=== PATIENT | male | born 1975 | race Caucasian/White ===

== ENCOUNTER 2019-10-14 12:12 | Emergency (ER) | payer MEDICAID ==
[2019-10-14] MEDS ORDERED: SODIUM CHLORIDE 0.9% 1,000 ML IV ONE (12:39)
--- NOTE | 2019-10-14 12:42 | ED Physician Documentation ---
PD HPI DYSPNEA - Stated complaint Stated Complaint: CHEST TIGHTNESS/DIZZY - Chief complaint Chief Complaint: Resp - History obtained from History obtained from: Patient (Previously healthy 44-year-old gentleman has been sick for 2 weeks. His symptoms include chest tightness and dyspnea both of which are worse with exertion. Also some mild orthopnea and the chest tightness is worse when he is flat. There is no associated cough or fever. He does have a lot of malaise and fatigue and lightheaded type dizziness. His whole family was sick with a viral syndrome but they have all recovered.) Review of Systems Ten Systems: 10 systems reviewed and negative Constitutional: reports: Fatigue. denies: Fever, Chills Cardiac: reports: Chest pain / pressure. denies: Palpitations, Pedal edema Respiratory: reports: Dyspnea. denies: Cough PD PAST MEDICAL HISTORY - Past Medical History Past Medical History: No - Past Surgical History Past Surgical History: No - Allergies Allergies/Adverse Reactions: Allergies Allergy/AdvReac Type Severity Reaction Status Date / Time No Known Drug Allergies Allergy Verified 10/14/19 12:20 - Social History Does the pt smoke?: No Does the pt drink ETOH?: Yes - Family History Family history: reports: Non contributory PD ED PE NORMAL - Vitals Vital signs reviewed: Yes - General General: Alert and oriented X 3, No acute distress - HEENT HEENT: PERRL, EOMI - Neck Neck: Supple, no meningeal sign, No bony TTP - Cardiac Cardiac: RRR, No murmur - Respiratory Respiratory: No respiratory distress, Clear bilaterally - Abdomen Abdomen: Normal bowel sounds, Soft, Non tender - Back Back: No CVA TTP, No spinal TTP - Derm Derm: Normal color, Warm and dry - Extremities Extremities: No edema, No calf tenderness / cord - Neuro Neuro: Alert and oriented X 3, Normal speech Results - Vitals Vitals: Vital Signs - 24 hr 10/14/19 10/14/19 10/14/19 12:20 13:04 14:01 Temperature 36.5 C Heart Rate 92 92 76 Respiratory 16 16 18 Rate Blood Pressure 170/100 H 133/84 H O2 Saturation 98 100 99 10/14/19 14:09 Temperature Heart Rate 100 Respiratory 18 Rate Blood Pressure 165/100 H O2 Saturation 100 Oxygen O2 Source Room air - EKG (time done) 1220 Rate: Rate (enter#) (93) Rhythm: NSR [place]: Normal Intervals: Normal DE QRS: Normal Ischemia: Normal ST segments Computer interpretation: Agree with computer - Labs Labs: Laboratory Tests 10/14/19 10/14/19 10/14/19 13:05 13:05 13:05 WBC 5.9 RBC 5.06 Hgb 15.3 Hct 43.9 MCV 86.8 MCH 30.2 MCHC 34.9 RDW 12.0 Plt Count 190 MPV 9.7 Neut # (Auto) 4.3 Lymph # (Auto) 1.2 L [place] # (Auto) 0.4 Eos # (Auto) 0.0 Baso # (Auto) 0.0 Absolute Nucleated RBC 0.00 Nucleated RBC % 0.0 D-Dimer VBG pH VBG pCO2 VBG pO2 VBG HCO3 VBG Total CO2 VBG O2 Saturation VBG Base Excess Sodium 139 Potassium 3.5 Chloride 102 Carbon Dioxide 25 Anion Gap 12.0 BUN 17 Creatinine 0.7 Estimated GFR (MDRD) 122 Glucose 105 H Calcium 9.8 Total Bilirubin 1.7 H AST 38 ALT 65 H Alkaline Phosphatase 68 Troponin I High Sens 2.9 B-Natriuretic Peptide Total Protein 8.2 Albumin 4.9 Globulin 3.3 Albumin/Globulin Ratio 1.5 Lipase 24 10/14/19 10/14/19 10/14/19 13:05 13:05 13:05 WBC RBC Hgb Hct MCV MCH MCHC RDW Plt Count MPV Neut # (Auto) Lymph # (Auto) [place] # (Auto) Eos # (Auto) Baso # (Auto) Absolute Nucleated RBC Nucleated RBC % D-Dimer < 200.0 L VBG pH 7.354 VBG pCO2 43.8 VBG pO2 56.4 H VBG HCO3 23.9 VBG Total CO2 25.2 VBG O2 Saturation 89.9 H VBG Base Excess -1.8 Sodium Potassium Chloride Carbon Dioxide Anion Gap BUN Creatinine Estimated GFR (MDRD) Glucose Calcium Total Bilirubin AST ALT Alkaline Phosphatase Troponin I High Sens B-Natriuretic Peptide 9 Total Protein Albumin Globulin Albumin/Globulin Ratio Lipase - Rads (name of study) 1v chest Radiology: EMP read contemporaneously (maybe bronchitis, no PNA) PD MEDICAL DECISION MAKING - ED course ED course: 44-year-old gentleman with fatigue and malaise potentially a viral syndrome. Note lymphopenia and coronavirus testing is sent. Otherwise basically negative work-up. Departure - Departure Disposition: 01 Home, Self Care Clinical Impression: Viral syndrome Chest pain Qualifiers: Chest pain type: unspecified Qualified Code(s): R07.9 - Chest pain, unspecified Condition: Good Record reviewed to determine appropriate education?: Yes Instructions: ED Chest Pain NonCardiac, ED Viral Syndrome Comments: Self quarantine in your home until no symptoms + another 72 hours. Return if worse. Discharge Date/Time: 10/14/19 14:08
--- NOTE | 2019-10-14 13:28 | XRAY Report ---
Reason: chest pain Procedure Date: 10/14/2019 Accession Number: [id number] / [id number] Procedure: XR - Chest 1 View X-Ray CPT Code: 45336 Final Report FULL RESULT: EXAM: CHEST RADIOGRAPHY EXAM DATE: 10/14/2019 01:21 PM. CLINICAL HISTORY: Chest pain. Cough. Labor breathing x2+ days. COMPARISON: None. TECHNIQUE: 1 view. FINDINGS: Lungs/Pleura: Mild bilateral bronchial wall thickening. No consolidation or vascular congestion. No pleural effusion or pneumothorax. Mediastinum: Cardiomediastinal silhouette appears unremarkable. Bones: No acute osseous findings identified. IMPRESSION: 1. Possible mild airways disease/bronchitis. No consolidation. RADIA
[2019-10-14 13:31] LABS: BASOPHILS % (AUTO) 0.3 %; EOSINOPHILS % (AUTO) 0.3 %; HGB - HEMOGLOBIN 15.3 g/dL (14.0-18.0); LYMPHOCYTES # (AUTO) 1.2 10^3/uL (1.5-3.5); LYMPHOCYTES % (AUTO) 19.8 %; MEAN CORPUSCULAR HEMOGLOBIN 30.2 pg (27.0-31.0); MEAN CORPUSCULAR HGB CONC 34.9 g/dL (32.0-36.0); MEAN CORPUSCULAR VOLUME 86.8 fL (80.0-94.0); MEAN PLATELET VOLUME 9.7 fL (7.4-11.4); MONOCYTES # (AUTO) 0.4 10^3/uL (0.0-1.0); MONOCYTES % (AUTO) 5.9 %; NEUTROPHILS # (AUTO) 4.3 10^3/uL (1.5-6.6); NEUTROPHILS % (AUTO) 73.4 %; PLT - PLATELET COUNT 190 10^3/uL (130-450); RED BLOOD COUNT 5.06 10^6/uL (4.70-6.10); WHITE BLOOD COUNT 5.9 x10^3/uL (4.8-10.8)
[2019-10-14 13:45] LABS: ALBUMIN 4.9 g/dL (3.2-5.5); ALBUMIN/GLOBULIN RATIO 1.5 (1.0-2.2); BILIRUBIN,TOTAL 1.7 mg/dL (0.2-1.0); CALCIUM 9.8 mg/dL (8.5-10.3); CREATININE 0.7 mg/dL (0.6-1.2); TOTAL PROTEIN 8.2 g/dL (6.7-8.2)
[2019-10-14 13:49] LABS: VBG PCO2 43.8 mmHg (41-51); VBG PH 7.354 (7.31-7.41)
[2019-10-14 13:50] LABS: VBG BASE EXCESS -1.8 mmol/L (-2 - +2); VBG PO2 56.4 mmHg (25-47); VBG TOTAL CO2 25.2 mmol/L (24-29)
[2019-10-14 14:10] VITALS: BP 165/100
== END 2019-10-14 14:08 | disposition home or self-care (01) ==
LOC: ED 12:12
DX: B34.9 Viral infection, unspecified (principal); R07.9 Chest pain, unspecified
CPT/HCPCS: 36415; 71045; 80053; 81599; 82803; 83690; 83880; 84484; 85025; 85379; 93005; 99284

== ENCOUNTER 2022-10-04 18:53 | Emergency (ER) | payer MEDICAID ==
[2022-10-04 19:23] LABS: BASOPHILS % (AUTO) 0.4 %; EOSINOPHILS # (AUTO) 0.1 10^3/uL (0.0-0.7); EOSINOPHILS % (AUTO) 0.9 %; HCT - HEMATOCRIT 43.1 % (42.0-52.0); HGB - HEMOGLOBIN 14.3 g/dL (14.0-18.0); LYMPHOCYTES # (AUTO) 2.4 10^3/uL (1.5-3.5); LYMPHOCYTES % (AUTO) 26.2 %; MEAN CORPUSCULAR HEMOGLOBIN 29.3 pg (27.0-31.0); MEAN CORPUSCULAR HGB CONC 33.2 g/dL (32.0-36.0); MEAN CORPUSCULAR VOLUME 88.3 fL (80.0-94.0); MEAN PLATELET VOLUME 9.2 fL (7.4-11.4); MONOCYTES # (AUTO) 0.8 10^3/uL (0.0-1.0); MONOCYTES % (AUTO) 8.2 %; NEUTROPHILS # (AUTO) 5.9 10^3/uL (1.5-6.6); PLT - PLATELET COUNT 213 10^3/uL (130-450); RED BLOOD COUNT 4.88 10^6/uL (4.70-6.10); RED CELL DISTRIBUTION WIDTH 12.3 % (12.0-15.0); WHITE BLOOD COUNT 9.2 x10^3/uL (4.8-10.8)
[2022-10-04 19:33] LABS: ALBUMIN 4.7 g/dL (3.2-5.5); ALBUMIN/GLOBULIN RATIO 1.4 (1.0-2.2); BILIRUBIN,TOTAL 1.9 mg/dL (0.2-1.0); CALCIUM 9.3 mg/dL (8.5-10.3); CREATININE 0.8 mg/dL (0.6-1.2); POTASSIUM 3.8 mmol/L (3.5-5.0); TOTAL PROTEIN 8.1 g/dL (6.7-8.2)
[2022-10-04 20:53] VITALS: BP 142/82
[2022-10-04 21:01] LABS: BILIRUBIN,URINE NEGATIVE (NEGATIVE); GLUCOSE, URINE (UA) NEGATIVE (NEGATIVE); KETONES,URINE (UA) NEGATIVE (NEGATIVE); LEUKOCYTE ESTERASE, URINE NEGATIVE (NEGATIVE); NITRITE,URINE NEGATIVE (NEGATIVE); OCCULT BLOOD,URINE NEGATIVE (NEGATIVE); PH,URINE 6.5 PH (5.0-7.5); PROTEIN,URINE NEGATIVE (NEGATIVE); UROBILINOGEN,URINE 0.2 (NORMAL) E.U./dL (NORMAL)
[2022-10-04 21:03] LABS: CLARITY,URINE CLEAR (CLEAR)
--- NOTE | 2022-10-04 21:08 | ED Physician Documentation ---
History of Present Illness - Stated complaint Stated Complaint: ABD PX - Chief complaint Chief Complaint: Abd Pain - History obtained from History obtained from: Patient - Additonal information Additional information: 47-year-old man with past medical history of bleeding colonic polyps for the past several years presents with left lower abdominal pain intermittent over the past couple days, sharp, shooting, with associated nausea and generalized malaise. Patient denies fever or diarrhea. He had a dark stool today. Review of Systems Constitutional: reports: Myalgias, Fatigue, Sweats. denies: Fever Cardiac: denies: Chest pain / pressure Respiratory: denies: Dyspnea GI: reports: Abdominal Pain, Nausea, Bloody / black stool. denies: Vomiting, Constipation : denies: Dysuria, Hematuria Musculoskeletal: denies: Back pain PD PAST MEDICAL HISTORY - Past Medical History Cardiovascular: None Respiratory: None Neuro: None Endocrine/Autoimmune: None GI: Other : None Psych: None Musculoskeletal: None Derm: None - Past Surgical History Past Surgical History: No General: Colonoscopy - Present Medications Home Medications: Ambulatory Orders Medication Instructions Recorded Confirmed No Known Home Medications 10/04/22 10/04/22 - Allergies Allergies/Adverse Reactions: Allergies Allergy/AdvReac Type Severity Reaction Status Date / Time No Known Drug Allergies Allergy Verified 10/04/22 19:00 - Social History Does the pt smoke?: No Smoking Status: Never smoker Does the pt drink ETOH?: Yes Does the pt have substance abuse?: No - Immunizations Immunizations are current?: Yes - POLST Patient has POLST: No PD ED PE NORMAL - Vitals Vital signs reviewed: Yes - General General: Alert and oriented X 3, No acute distress, Well developed/nourished - HEENT HEENT: Atraumatic, PERRL, EOMI - Neck Neck: Supple, no meningeal sign - Cardiac Cardiac: RRR - Respiratory Respiratory: No respiratory distress, Clear bilaterally - Abdomen Abdomen: Non tender, Non distended, Other (discomfort in LLQ) Results - Vitals Vitals: Vital Signs - 24 hr 10/04/22 10/04/22 18:57 20:52 Temperature 37.1 C Heart Rate 95 75 Respiratory 16 14 Rate Blood Pressure 134/94 H 142/82 H O2 Saturation 99 98 Oxygen O2 Source Room air - Labs Labs: Laboratory Tests 10/04/22 10/04/22 10/04/22 19:16 19:16 20:48 WBC 9.2 RBC 4.88 Hgb 14.3 Hct 43.1 MCV 88.3 MCH 29.3 MCHC 33.2 RDW 12.3 Plt Count 213 MPV 9.2 Neut # (Auto) 5.9 Lymph # (Auto) 2.4 [place] # (Auto) 0.8 Eos # (Auto) 0.1 Baso # (Auto) 0.0 Absolute Nucleated RBC 0.00 Nucleated RBC % 0.0 Sodium 138 Potassium 3.8 Chloride 102 Carbon Dioxide 26 Anion Gap 10.0 BUN 17 Creatinine 0.8 Estimated GFR (MDRD) 103 Glucose 110 H Calcium 9.3 Total Bilirubin 1.9 H AST 18 ALT 33 Alkaline Phosphatase 66 Total Protein 8.1 Albumin 4.7 Globulin 3.4 Albumin/Globulin Ratio 1.4 Lipase 32 Urine Color YELLOW Urine Clarity CLEAR Urine pH 6.5 Ur Specific [place] 1.015 Urine Protein NEGATIVE Urine Glucose (UA) NEGATIVE Urine Ketones NEGATIVE Urine Occult Blood NEGATIVE Urine Nitrite NEGATIVE Urine Bilirubin NEGATIVE Urine Urobilinogen 0.2 (NORMAL) Ur Leukocyte Esterase NEGATIVE Ur Microscopic Review NOT INDICATED Urine Culture Comments NOT INDICATED PD Medical Decision Making - ED course ED course: 47-year-old man presented with left lower abdominal pain intermittent over the past couple days. CBC, abdominal panel, urinalysis ordered. They were unremarkable with the exception of elevated bilirubin which is stable from previous. His exam was completely benign. Patient has no history of diverticulitis and is not having fevers therefore this is lower on the differential. Likely stomach virus mediating his symptoms. Advised symptomatic care. Return precautions given. Plan to follow-up with GI and primary care provider. Departure - Departure Disposition: 01 Home, Self Care Clinical Impression: Abdominal pain Condition: Good Instructions: Abdominal Pain Follow-Up: FRANSISCO PAEZ MD [Physician No Access] - Comments: You were seen in the emergency department for abdominal pain. Your labwork was stable, vital signs and exam looked good. Stay well hydrated and get lots of rest. Please return to the emergency department if you develop fever with temperature higher than 100.4, any other new or worsening symptoms or if you have other concerns. Follow-up with your primary care provider. Referral provided to GI for your chronic rectal bleeding.
== END 2022-10-04 21:12 | disposition home or self-care (01) ==
LOC: ED 18:53
DX: R10.32 Left lower quadrant pain (principal)
CPT/HCPCS: 36415; 80053; 81001; 81003; 83690; 85025; 87086; 99283